=== PATIENT | female | born 1975 | race Caucasian/White ===

== ENCOUNTER 2016-12-27 22:10 | Inpatient (IN) | payer OTHER ==
[~2016-12-27] VITALS: Ht 167.6 cm; Wt 78.9 kg
[2016-12-27] MEDS ORDERED: NALBUPHINE HCL 10 MG/ML AMP IVP PRN (23:30)
[2016-12-27] MEDS ORDERED: OXYTOCIN/NORMAL SALINE 1,000 ML IV SCH (23:30)
[2016-12-27] MEDS ORDERED: AMPICILLIN SODIUM 2 GM in NS 100 ML IV SCH (23:30)
[2016-12-27] MEDS ORDERED: TERBUTALINE SULFATE 1 MG/ML VIAL SUBCUT ONE (23:30)
[2016-12-27] MEDS ORDERED: LR 1,000 ML IV ONE (23:30)
[2016-12-27] MEDS ORDERED: GENTAMICIN 80 mg/100 mL NS 100 ML IV SCH (23:30)
[2016-12-27 23:39] VITALS: BP_SYST 121
[2016-12-27] MEDS: AMPICILLIN SODIUM 2 GM in NS 100 ML IV SCH (23:58)
[2016-12-28] MEDS ORDERED: AMPICILLIN SODIUM 2 GM VIAL ONE ×2 (00:04→06:09)
[2016-12-28] MEDS: LR 1,000 ML IV SCH ×2 (00:31→03:17)
[2016-12-28 00:40] LABS: BASOPHILS % (AUTO) 0.3 % (0.0-2.0); EOSINOPHILS # (AUTO) 0.1 K/uL (0.0-0.4); EOSINOPHILS % (AUTO) 0.8 % (0.0-4.0); HEMATOCRIT 33.1 % (36-48); HEMOGLOBIN 11.3 g/dL (12.0-16.0); LYMPHOCYTES # (AUTO) 1.4 K/uL (1.0-5.5); LYMPHOCYTES % (AUTO) 13.1 % (20.5-51.5); MEAN CORPUSCULAR HEMOGLOBIN 33 pg (27-31); MEAN CORPUSCULAR HGB CONC 34 % (32-36); MEAN CORPUSCULAR VOLUME 97 fL (79.0-98.0); MONOCYTES # (AUTO) 0.6 K/uL (0.0-1.0); MONOCYTES % (AUTO) 5.5 % (1.7-9.3); NEUTROPHILS # (AUTO) 8.7 K/uL (1.8-7.7); NEUTROPHILS % (AUTO) 80.3 % (40.0-70.0); PLATELET COUNT (AUTO) 275 K/uL (130-430); RED CELL DISTRIBUTION WIDTH 12.9 % (9.0-15.0); WHITE BLOOD COUNT (AUTO) 10.8 K/uL (4.8-10.8)
[2016-12-28] MEDS ORDERED: fentaNYL CITRATE/PF 100 MCG/2 ML AMP ONE (01:00)
[2016-12-28] MEDS ORDERED: FENT2mCg/mL-ROPIVA0.2%/NS EPID 150 ML EP ONE (01:00)
[2016-12-28] MEDS ORDERED: LR 500 ML IV ONE (01:54)
[2016-12-28] MEDS ORDERED: FENT2mCg/mL-ROPIVA0.2%/NS EPID 150 ML EP SCH (02:00)
[2016-12-28] MEDS ORDERED: fentaNYL CITRATE/PF 100 MCG/2 ML AMP EP ONE (02:00)
[2016-12-28] MEDS ORDERED: ePHEDrine sulfate 50 MG/ML VIAL IVP PRN (02:00)
[2016-12-28] MEDS: AMPICILLIN SODIUM 2 GM in NS 100 ML IV SCH (06:07)
[2016-12-28] MEDS ORDERED: ROPIVACAINE 40 MG/20 ML AMP EP ONE (11:00)
[2016-12-28] MEDS ORDERED: MINERAL OIL 30 ML UDC PO ONE (11:00)
[2016-12-28] MEDS ORDERED: OXYTOCIN/NORMAL SALINE 1,000 ML IV SCH (11:17)
[2016-12-28] MEDS ORDERED: OXYTOCIN/NORMAL SALINE 1,000 ML IV ONE (11:17)
[2016-12-28] MEDS ORDERED: OXYCODONE/ACETAMINOPHEN 5-325 TABLET PO PRN ×2 (11:30)
[2016-12-28] MEDS ORDERED: LANOLIN 7 GM OINT. TP PRN (11:30)
[2016-12-28] MEDS ORDERED: HYDROCORTISONE 0.5%, 28.35 GM TOPICAL CREAM TP PRN (11:30)
[2016-12-28] MEDS ORDERED: GLYCERIN/WITCH HAZEL (TUCKS PADS) TP PRN (11:30)
[2016-12-28] MEDS ORDERED: RHO(D) IMMUNE GLOBULIN/MALTOSE 1500 UNITS/1.3 ML (WINHRO) IM PRN (11:30)
[2016-12-28] MEDS ORDERED: DERMOPLAST SPRAY TP PRN (11:30)
[2016-12-28] MEDS ORDERED: MEASLES,MUMPS&RUBELLA VACC/PF 12500 UNIT/0.5 ML VIAL SUBQ PRN (11:30)
[2016-12-28] MEDS ORDERED: METHYLERGONOVINE MALEATE 0.2 MG TABLET PO PRN (11:30)
[2016-12-28] MEDS ORDERED: HYDROcodone/ACETAMIN 5-325 MG TAB (NORCO/ VICODIN) PO PRN (11:30)
[2016-12-28] MEDS ORDERED: ANUSOL 1 EA SUPP.RECT (PREPARATION H) RC PRN (11:30)
[2016-12-28] MEDS: IBUPROFEN 600 MG TABLET PO SCH (13:08)
[2016-12-28] MEDS ORDERED: TEMAZEPAM 15 MG CAPSULE PO PRN (21:00)
[2016-12-29] MEDS: IBUPROFEN 600 MG TABLET PO SCH ×5 (00:25→23:55)
[2016-12-29] MEDS ORDERED: DIPH-TET-PERTUS Vaccine 0.5 ML VIAL (ADACEL) I.M. SCH (06:00)
[2016-12-29] MEDS: DOCUSATE SODIUM 100 MG CAPSULE PO PRN (06:26)
[2016-12-29 06:58] LABS: BASOPHILS % (AUTO) 0.1 % (0.0-2.0); EOSINOPHILS # (AUTO) 0.1 K/uL (0.0-0.4); EOSINOPHILS % (AUTO) 1.4 % (0.0-4.0); HEMATOCRIT 32.9 % (36-48); HEMOGLOBIN 10.9 g/dL (12.0-16.0); LYMPHOCYTES # (AUTO) 1.5 K/uL (1.0-5.5); LYMPHOCYTES % (AUTO) 15.6 % (20.5-51.5); MEAN CORPUSCULAR HEMOGLOBIN 33 pg (27-31); MEAN CORPUSCULAR HGB CONC 33 % (32-36); MEAN CORPUSCULAR VOLUME 98 fL (79.0-98.0); MONOCYTES # (AUTO) 0.5 K/uL (0.0-1.0); MONOCYTES % (AUTO) 4.9 % (1.7-9.3); NEUTROPHILS # (AUTO) 7.4 K/uL (1.8-7.7); PLATELET COUNT (AUTO) 235 K/uL (130-430); RED BLOOD CELL COUNT(AUTO) 3.36 MIL/uL (4.2-6.2); RED CELL DISTRIBUTION WIDTH 13.5 % (9.0-15.0); WHITE BLOOD COUNT (AUTO) 9.5 K/uL (4.8-10.8)
[2016-12-29] MEDS: SENNOSIDES/DOCUSATE SODIUM 1 TAB TABLET(SENOKOT-S) PO PRN (12:03)
[2016-12-30] MEDS: DOCUSATE SODIUM 100 MG CAPSULE PO PRN (05:56)
[2016-12-30] MEDS: IBUPROFEN 600 MG TABLET PO SCH (05:56)
[2016-12-30] MEDS: SENNOSIDES/DOCUSATE SODIUM 1 TAB TABLET(SENOKOT-S) PO PRN (05:56)
== END 2016-12-30 11:00 | disposition home or self-care (01) | DRG 775 ==
LOC: SPU 22:10 → OBSVTOIN 23:28 → SPU 12-29 19:00
PROVIDERS: ADMIT Specialist; ATTEND Specialist
PROC: 10D07Z6 Extraction of Products of Conception, Vacuum, Via Natural or Artificial Opening (ICD-10-PCS; principal; 2016-12-28)
PROC: 3E0S3CZ (ICD-10-PCS; 2016-12-28)
PROC: 00HU33Z Insertion of Infusion Device into Spinal Canal, Percutaneous Approach (ICD-10-PCS; 2016-12-28)
PROC: 3E0234Z Introduction of Serum, Toxoid and Vaccine into Muscle, Percutaneous Approach (ICD-10-PCS; 2016-12-28)
DX: O75.89 Other specified complications of labor and delivery (principal); Z3A.38 38 weeks gestation of pregnancy; Z37.0 Single live birth; O09.523 Supervision of elderly multigravida, third trimester; O09.43 Supervision of pregnancy with grand multiparity, third trimester; Z23 Encounter for immunization
CPT/HCPCS: 36415; 81002-TC; 85025; 86592; 86886; 86900; 86901; G0378; J0290; J1580; J2590; J2795; J3010; J7120